=== PATIENT | male | born 1950 | race Caucasian/White ===

== ENCOUNTER → 2016-11-13 | Outpatient (CLI) | payer OTHER ==
[~2016-11-13] MED LIST: ADULT LOW DOSE81 MG PO; ADVAIR 250-501 EACH IH; ALTACE PO; AMARYL2 MG PO; AMBIEN 5 MG TABL5 M1 PO; CENTRUM TABLET1 TAB PO; CLONAZEPAM 0.50.5 M1 PO; COLACE100 MG PO; COMBIVENT INH; COMBIVENT RESPIM4 GM SPRAY; COMPLEX B-1001 EACH PO; COZAAR 25 MG TA25 MG PO; EFFEXOR XR150 MG PO; FENTANYL 1100 MCG/HR TP; FISH OIL 1,0001 EAC5 PO; FLAX OIL1000 MG PO; FLOMAX0.4 MG PO; FLONASE 0.05%50 MCG NS; GLUCOPHAGE500 MG PO; GLUCOSAMINE &1 EACH PO; IRON325 PO; MAGNESIUM500 MG PO; MELATONIN3 MG PO; MORPHINE SULFAT15 M3 PO; MS CONTIN100 MG PO; MUCINEX600 MG PO; NEURONTIN800 MG PO; NEXIUM40 MG PO; NIFEDIPINE ER60 M1 PO; NITROQUICK0.4 MG SL; PLAVIX 75 MG TA75 MG PO; ROXICODONE5 M2 PO; SPIRIVA INH; TRIAMTERENE-HC1 EAC3 PO; VITAMIN E1000 UNIT PO; VITAMINC500 PO; WELLBUTRIN SR150 MG PO; ZANAFLEX4 M1 PO; ZETIA10 MG PO
== END ==
LOC: CAT 09:47
DX: J44.9 Chronic obstructive pulmonary disease, unspecified (principal); J98.11 Atelectasis

== ENCOUNTER → 2017-07-18 | Outpatient (CLI) | payer OTHER | LOC: RAD 11:41 | DX: J44.9 Chronic obstructive pulmonary disease, unspecified (principal); J43.8 Other emphysema; I25.10 Atherosclerotic heart disease of native coronary artery without angina pectoris; K21.9 Gastro-esophageal reflux disease without esophagitis; I10 Essential (primary) hypertension; E11.9 Type 2 diabetes mellitus without complications ==

== ENCOUNTER 2019-05-06 09:26 | Day surgery (SDC) | payer OTHER ==
[~2019-05-06] VITALS: Ht 170.2 cm; Wt 106.1 kg
[~2019-05-06 09:26] MED LIST changes: +ADVAIR 250-501 EACH INH; +ALBUTEROL2.5 MG/31 INH; +AMOXICILLIN 50500 MG PO; +CARAFATE 1 GM TA1 G1 PO; +COZAAR 25 MG TA25 M2 PO; +FLONASE 0.05%50 MCG NASAL; +GAS-X125 MG PO; +LUNESTA3 MG PO; +METFORMIN HCL500 MG PO; +MORPHINE SULFAT30 M4 PO; +MULTIVITAMINS1 EAC7 PO; +NEURONTIN 400400 M1 PO; +NITROGLYCERIN0.4 MG SUBLING; +OXYCODONE HCL10 MG PO; +SPIRIVA18 MCG INH; +SPIRONOLACTONE25 M1 PO; +TRIAMCINOLONE A80 G2 TOP; +TROSPIUM CHLORI20 MG PO
[2019-05-06 10:06] LABS: HEMATOCRIT 41.2 % (42.0-52.0); HEMOGLOBIN 13.7 gm/dL (14.0-18.0)
[2019-05-06 10:22] LABS: CALCIUM 9.5 mg/dL (8.5-10.1); CREATININE 1.1 mg/dL (0.7-1.3); POTASSIUM 4.4 mmol/L (3.5-5.1)
[2019-05-06] MEDS ORDERED: SENNA PLUS TAB1 EACH PO (12:35)
[2019-05-06 12:57] VITALS: BP 145/89
--- NOTE | 2019-05-07 08:54 | O ---
[facility] [place] [address] OPERATIVE REPORT Name: ADRIANNA BARRETO Room #: DEP [facility]..#: [id number] Admission: 05/06/19 Attend Phys: Jessica Eduardo MD, Discharge: 05/06/19 Date of : 48 Report #: [id number] THIS REPORT FOR: //name// CC: Yeison Eduardo DATE OF SERVICE: 05/06/2019 PREOPERATIVE DIAGNOSIS: Symptomatic cholelithiasis. POSTOPERATIVE DIAGNOSES: 1. Symptomatic cholelithiasis. 2. Resolved choledocholithiasis. PROCEDURE PERFORMED: Laparoscopic cholecystectomy with intraoperative cholangiogram. SURGEON: Jessica Eduardo M.D. OCC THERAPIST: MERRITT Blanc. ANESTHESIA: General endotracheal anesthesia. ESTIMATED BLOOD LOSS: Minimal (less than 5 mL). COMPLICATIONS: None appreciated. SPECIMENS: Gallbladder to pathology. INDICATIONS: The patient is a 68-year-old male who presented several months ago with intermittent right upper quadrant abdominal pain and postprandial nausea with findings of gallstones. The patient attempted to tolerate this due to his significant cardiac history, but when he had progressive worsening of symptoms, he presented for evaluation. We have obtained cardiac clearance to proceed and as such, indication was for the above-mentioned procedure today. DESCRIPTION OF PROCEDURE: After explaining the risks, benefits and alternatives of the procedure with the patient in detail in the preoperative holding area and obtaining written consent, the patient was brought to the operating room and placed supine on the operating room table. After conducting a thorough timeout procedure verifying correct patient and procedure, the patient was given general endotracheal anesthesia. Once adequate anesthesia was obtained, his SCDs were hooked up to pneumatic compression device and he was given a preoperative dose of antibiotics in line with the SCIP protocol. The patient's abdomen was prepped and draped in standard surgical sterile fashion. 5 mL of 0.5% Marcaine [facility] [address] [place] [address] OPERATIVE REPORT Name: ADRIANNA BARRETO [id number] Admission: 05/06/19 Attend Phys: Jessica Eduardo MD, Discharge: 05/06/19 Date of : 48 Report #: [id number] with epinephrine were used to anesthetize the skin in the right upper quadrant midclavicular line in subcostal location. A #15 bladed scalpel was used to create a small skin shaun at this location. A 5 mm Visiport was placed over 0 degree 5 mm laparoscope and was introduced through this incision site. Once intra-abdominal placement was verified visually, the obturator for the trocar and laparoscope were both removed and the abdomen was insufflated to 15 mmHg using carbon dioxide gas. The laparoscope was changed to a 5-mm 30-degree laparoscope, which was reintroduced through this trocar. The entire abdomen was evaluated to ensure no injury upon entry. There were some adhesions in the mid abdomen from his prior open ventral hernia repairs; however, I was able to anesthetize the skin cephalad to these adhesions with 5 mL of 0.5% Marcaine with epinephrine and I created a 1 cm vertical incision at this location. An 11 mm Visiport was placed through this incision site under direct vision skewing cephalad to the adhesions and avoiding them altogether. The patient was now placed in steep reverse Trendelenburg with the right side elevated. The laparoscope was removed and placed in the 11 mm trocar. I now placed two additional 5 mm trocars, one in the subxiphoid location, one in the right lateral flank, both under direct vision after anesthetizing the skin at each location with 5 mL of 0.5% Marcaine with epinephrine and created small skin nicks using #15 bladed scalpel. Using the inferolateral most port along the patient's right flank, the fundus of the gallbladder was grasped and retracted cephalad. Careful tedious dissection was undertaken down around the cholecysto-cystic junction using combination of Harmonic scalpel and Maryland dissector. Once I had attained a critical view, namely the cystic duct emanating from the infundibulum of the gallbladder and coursing the common bile duct as well as cystic artery running the surface of the gallbladder and I created a window behind each, I transected the cystic artery nearest to the gallbladder side using Harmonic scalpel for hemostasis. A single clip was now placed along the cystic duct nearest to the gallbladder side and a small ductotomy was made just distal to this clip using EndoShears. This ductotomy was cannulated using the taut cholangiocatheter setup. We now performed an intraoperative cholangiogram showing prompt opacification of the cystic duct with both intra and extrahepatic bile ducts becoming opacified. There was antegrade flow of contrast in the duodenum with findings of a stone in the distal common bile duct that I was able to clear with repeated flushing of the common bile duct. At the completion run, we had antegrade flow of contrast into the duodenum with no evidence of filling defects or obstruction. The common bile duct at its distal most aspect was narrowed and tapered, but there was free flow and spillage of contrast into the duodenum. The cholangiocatheter setup was now removed, three clips were placed along the cystic duct nearest to the common bile duct side and it was transected above these clips using Harmonic scalpel to help seal the end of the duct closed. Further retraction at the infundibulum of the gallbladder in cephalad direction allowed me to elevate the gallbladder off the liver bed using Harmonic scalpel for hemostasis. The laparoscope was removed, changed to the right midclavicular 5 mm port and the EndoCatch bag was placed in the supraumbilical trocar. The specimen was placed [address] [address] OPERATIVE REPORT Name: ADRIANNA BARRETO Room #: DEP [facility]#: [id number] Admission: 05/06/19 Attend Phys: Jessica Eduardo MD, Discharge: 05/06/19 Date of : 48 Report #: [id number] within it. The pursestring suture was drawn and specimen was removed under direct vision. I then closed the supraumbilical fascial incision using 0 PDS suture on the Alan-Maury suture passer device and tied this down under direct vision. Final evaluation of the gallbladder fossa showed complete hemostasis with clips seated nicely on the cystic duct stump remnant. The abdomen was fully desufflated. All trocars removed under direct vision. A 4-0 Monocryl was used in a standard subcuticular fashion for all skin incisions and Dermabond glue was applied to all skin wounds. The gallbladder was opened on the back table showing significant findings of cholelithiasis and cholesterolosis, but no other pathologic findings were identified. At the end of the procedure, all instrument, needle and sponge counts were correct. The patient tolerated the procedure without incident, was awakened in the operating room, transitioned to the recovery room in stable condition with no apparent complications. <ELECTRONICALLY SIGNED> By: Jessica Eduardo MD, FACS 05/07/19 0854 [id number] Jessica Eduardo MD, FACS /nt
--- NOTE | 2019-05-07 15:07 | PATH ---
[facility] [address] [place] [address] PATHOLOGY RPT PROCEDURE Name: JOSE ALFREDO BARRETO Room #: DEP [facility] M.R.#: [id number] Admission: 05/06/19 Date of : 48 Discharge: 05/06/19 Report #: [id number] Path Case #: [id number] [facility] Accession Number: [id number] . 01 Material submitted: . gallbladder - GALLBLADDER . 01 Clinical history: . Calculus of gallbladder . 02 Diagnosis: Gallbladder, cholecystectomy: - Mild chronic cholecystitis. - Cholelithiasis. (IUV:jay; 05/07/2019) MBR 05/07/2019 1319 Local . 02 Electronically signed: . Angela Mcdonough MD, Pathologist NPI- [id number] . 01 Gross description: . The specimen is received in formalin labeled "Hockaday, Jose Alfredo, gallbladder" and consists of a previously opened green, smooth, and wrinkled gallbladder measuring 7.3 x 4.8 x 0.8 cm. The margin is inked black. Present within the container are multiple yellow multifaceted calculi measuring 4.9 x 3.5 x 1.4 cm in aggregate. The mucosa is green-brown and eroded with an average wall thickness of 0.1 cm. No masses are identified. Drill Doctor sections are submitted in A1. (SDY; 05/06/2019) SYU/SYU 05/06/[address] [place] [address] . 02 Pathologist provided ICD-10: K80.10 . 02 CPT . 430058 Specimen Comment: A courtesy copy of this report has been sent to Specimen Comment: [phone], . Specimen Comment: Report sent to / DR BHATTI Performed at: [address] [id number] MD Gildardo Khalil MD Phone: [phone] Performed at: [address] [id number] [address] [address] PATHOLOGY RPT PROCEDURE Name: JOSE ALFREDO BARRETO Room #: DEP [facility] M.R.#: [id number] Admission: 05/06/19 Date of : 48 Discharge: 05/06/19 Report #: [id number] Path Case #: [id number] MD Angela Vadlamani MD Phone: [phone]
== END 2019-05-06 14:15 | disposition home or self-care (01) ==
LOC: OR 09:26 → TBA 09:32 → OR 14:15
PROVIDERS: Surgery
DX: K80.10 Calculus of gallbladder with chronic cholecystitis without obstruction (principal); I10 Essential (primary) hypertension; E11.9 Type 2 diabetes mellitus without complications; E78.00 Pure hypercholesterolemia, unspecified; K21.9 Gastro-esophageal reflux disease without esophagitis; J43.9 Emphysema, unspecified; F32.9 Major depressive disorder, single episode, unspecified; F41.9 Anxiety disorder, unspecified; G47.30 Sleep apnea, unspecified; M19.90 Unspecified osteoarthritis, unspecified site; Z98.890 Other specified postprocedural states; Z79.899 Other long term (current) drug therapy; Z96.653 Presence of artificial knee joint, bilateral; Z87.891 Personal history of nicotine dependence; Z88.8 Allergy status to other drugs, medicaments and biological substances
CPT/HCPCS: 50010; 50101; 50249; 50411; 50555; 50558; 50962; 51975; 52265; 53307; 54022; 54118; 55245; 55317; 56462; 56525; 56526; 62110; 62900; 70005

== ENCOUNTER → 2019-09-15 | Outpatient (CLI) | payer OTHER ==
[~2019-09-15] MED LIST changes: +SENNA PLUS TAB1 EACH PO
== END ==
LOC: CAT 11:38
DX: Z12.2 Encounter for screening for malignant neoplasm of respiratory organs (principal); J98.4 Other disorders of lung; I25.10 Atherosclerotic heart disease of native coronary artery without angina pectoris; R19.5 Other fecal abnormalities; M25.78 Osteophyte, vertebrae; M43.04 Spondylolysis, thoracic region; Z87.891 Personal history of nicotine dependence

== ENCOUNTER → 2019-11-24 | Outpatient (CLI) | payer OTHER | LOC: RAD 13:16 | DX: J18.8 Other pneumonia, unspecified organism (principal); J44.9 Chronic obstructive pulmonary disease, unspecified; J98.11 Atelectasis; J98.4 Other disorders of lung ==

== ENCOUNTER → 2020-04-20 | Outpatient (CLI) | payer OTHER | LOC: RAD 15:15 | PROVIDERS: ATTEND Family Medicine | DX: R07.9 Chest pain, unspecified (principal); R07.81 Pleurodynia ==

== ENCOUNTER → 2020-08-11 | Outpatient (CLI) | payer OTHER | LOC: RAD 12:07 | PROVIDERS: ATTEND Internal Medicine | DX: J44.9 Chronic obstructive pulmonary disease, unspecified (principal) ==

== ENCOUNTER 2020-10-04 10:49 | Inpatient (IN) | payer OTHER ==
[~2020-10-04] VITALS: Ht 170.2 cm; Wt 113.4 kg
--- NOTE | ~2020-10-04 | HC ---
[facility] [address] CONSULTATION Name: ADRIANNA BARRETO Room #: 461-P ADM IN M.R.#: [id number] Admission: 10/04/20 Attend Phys: Kendrick Gunn MD Discharge: Date of : 48 Report #: [id number] THIS REPORT FOR: cc: Yeison Nazario James A. DO Smithson, David G. MD ~ DATE OF SERVICE: 10/06/2020 HISTORY OF PRESENT ILLNESS: The patient is a 70-year-old male admitted with recent multiple falls, confusion, was noted to have acute renal failure thought to be acute kidney insufficiency superimposed on chronic kidney disease, likely a grade 2. Creatinine was up to 4.9. He is noted to have rhabdomyolysis. Nephrology has been involved. He has been hydrated. Creatinine has come down to 1.4. He was noted to have a superimposed toxic metabolic encephalopathy. He is feeling better now and is hoping to return directly home. PAST MEDICAL HISTORY: Includes hypertension, hyperlipidemia, coronary artery disease, diabetes mellitus type 2, COPD, and GERD. MEDICATIONS: Please see the full medication listing. ALLERGIES: Multiple allergies are as noted. SOCIAL HISTORY: Lives in a house with his , 2 steps in. Premorbid cane ambulator. He is on O2, 2 liters during the day with 3 liters at night. He has a CPAP at night. The patient and his are both retired . REVIEW OF SYSTEMS: Did not offer any current complaints of chest pain, shortness of breath or abdominal discomfort. He apparently has had a couple of prior episodes of rhabdomyolysis, which the relates to dehydration/medication issues. PHYSICAL EXAMINATION: GENERAL: He is a pleasant 70-year-old white male in no obvious distress. VITAL SIGNS: Last recorded temperature 36.7, pulse 81, respirations 19, and blood pressure 146/84. NEUROLOGIC: He is alert, follows basic 1 step commands. HEENT: Facies appeared symmetric. EXTREMITIES: He has functional range of motion of both upper extremities. Strength is grade 4+/5. DTRs are trace to 1. Lower extremities, no focal calf swelling, functional range of motion, strength is grade 4+/5. Tone appeared to be intact. He is standby assistance sit to stand. Gait 50 feet min assist, handheld. He has got a slight wide base of support. Lower extremity dressing was mod assist. [facility] [address] [place] [address] CONSULTATION Name: ADRIANNA BARRETO Room #: 461-P [facility] IN [facility]#: [id number] Admission: 10/04/20 Attend Phys: Kendrick Gunn MD Discharge: Date of : 48 Report #: [id number] ASSESSMENT: A 70-year-old white male with the following problem list: 1. Toxic metabolic encephalopathy, which appears to be improving. 2. Acute renal failure, probable acute tubular necrosis, improved. 3. Rhabdomyolysis. 4. Hypertension. 5. Hyperlipidemia. 6. Chronic obstructive pulmonary disease. 7. Chronic pain. PLAN: He is feeling better and the patient and his are both hoping to return directly home rather than going for an acute inpatient rehabilitation stay. We will have PT and OT do training with the and if all goes well, would anticipate he should be able to return directly home with either some home healthcare or outpatient therapy. If the training does not go well, then we would be available as a backup plan for a short acute in-hospital inpatient rehabilitation stay. By: 1428 1523 Chris Mcnally MD /nt
[2020-10-04 10:51] VITALS: BP 109/82
--- NOTE | 2020-10-04 11:05 | NUR ---
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 PT'S REPORTS THAT PT HAD A TOOTH EXTRACTED RECENTLY. THAT FALLS BEGAN ON SUNDAY. THAT SHE NOTES WHAT MIGHT ALSO BE HALLUCINATIONS
[2020-10-04 11:43] LABS: ABSOLUTE NEUTROPHILS 7.1 thou/uL (1.4-8.2); BASOPHILS 0.5 % (0.0-2.0); EOSINOPHILS 1.1 % (0.0-3.0); HEMATOCRIT 35.7 % (42.0-52.0); HEMOGLOBIN 12.1 gm/dL (14.0-18.0); LYMPHOCYTES 11.9 % (24.0-44.0); MCH 32.9 pg (26.0-34.0); MCV 96.9 fL (80.0-100.0); MONOCYTES 7.1 % (1.0-8.0); PLATELET COUNT 249 thou/uL (150-400); POLYS 79.4 % (36.0-66.0); RBC 3.68 mil/uL (4.50-6.00); RDW 14.8 % (10.5-14.5)
[2020-10-04 11:55] LABS: CALCIUM 10.4 mg/dL (8.5-10.1); CREATININE 4.9 mg/dL (0.7-1.3); POTASSIUM 3.6 mmol/L (3.5-5.1)
[2020-10-04 12:01] LABS: ALBUMIN 3.8 g/dL (3.4-5.0); TOTAL BILIRUBIN 0.9 mg/dL (0.2-1.0); TOTAL PROTEIN 7.8 g/dL (6.4-8.2)
[2020-10-04 13:55] LABS: URINE BILIRUBIN NEGATIVE (Negative); URINE BLOOD TRACE (Negative); URINE CLARITY CLEAR; URINE COLOR YELLOW; URINE GLUCOSE-RANDOM* NEGATIVE (Negative); URINE KETONES NEGATIVE (Negative); URINE LEUKOCYTES-REFLEX NEGATIVE (Negative); URINE NITRITE-REFLEX NEGATIVE (Negative); URINE PROTEIN (DIPSTICK) NEGATIVE (Negative); URINE SPECIFIC GRAVITY 1.015 (1.005-1.035); URINE UROBILINOGEN 0.2 E.U./dl (0.2-1.0)
--- NOTE | 2020-10-04 15:00 | EKG ---
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
[2020-10-04 17:34] VITALS: BP 112/52
[2020-10-04 18:26] VITALS: BP 112/52
[2020-10-04 19:36] VITALS: BP 131/58
[2020-10-04 20:52] VITALS: BP 136/72
[2020-10-05 05:12] VITALS: BP 114/61
--- NOTE | 2020-10-05 05:37 | NUR ---
ASUUMED CARE OF PT FROM ER AT 1940HRS. PT IS AOX4 AND LETS NEEDS BE KNOWN. FALL PRECAUTION IN PLACE. PT WAS OTIENTED TO THE UNIT AND HIS ROOM. PT WAS ABLE TO SIGN CONSENTS AND ANSWER ALL ADMISSION RELATED QUESTIONS. ASSESSMENT CHARTED. SCDS IN PLACE. ORDERS RECEIVED AND STARTED. PT USED THE URINAL. PT REPORTS NOT HAVING A BM FOR ABOUT A WEEK. PT WAS ABLE TO GET COMFORTABLE AND SLEEP PART OF THE SHIFT. NO S/S OF ACUTE DISTRESS WILL CONTINUE TO MONITOR.
[2020-10-05 06:02] LABS: HEMATOCRIT 34.8 % (42.0-52.0); HEMOGLOBIN 11.8 gm/dL (14.0-18.0); MCH 32.9 pg (26.0-34.0); MCHC 33.9 g/dL (28.0-37.0); MCV 96.9 fL (80.0-100.0); RBC 3.59 mil/uL (4.50-6.00); RDW 14.5 % (10.5-14.5); WBC 4.9 thou/uL (4.0-11.0)
[2020-10-05 06:12] LABS: CALCIUM 9.7 mg/dL (8.5-10.1); POTASSIUM 3.5 mmol/L (3.5-5.1)
[2020-10-05 06:15] LABS: CREATININE 2.9 mg/dL (0.7-1.3)
[2020-10-05 08:10] VITALS: BP 122/67
--- NOTE | 2020-10-05 13:24 | NUR ---
Assumed pt care at 7am.Pt in bed sleeping with cpap on but arousable. Assessment completed.vss.Pt up in chair for all meals.Good appetite.Pt wanted to call family on long distance. rn assisted pt with call .PT and OT eval done.Rehab consult done.Pt resting in chair with o2 on. No c/o soa.Fall bundle in place. Will continue to monitor.
--- NOTE | 2020-10-05 15:11 | NUR ---
PT ADMITTED RELATED TO ACUTE RENAL FAILURE, GENERALIZED WEAKNESS, MILD RHABDO. CM REVIEWED CHART AND SPOKE WITH CARE TEAM. CM MET WITH PT AT BEDSIDE THIS DAY. PT APPEARED TO BE A&O X4. CM ROLE INTRODUCED. PT INDICATED HE RESIDES IN A HOUSE WITH HIS SPOUSE Alexandra LOPEZ [place] WITH 1 STEP TO ENTER THE FRONT OF THE HOUSE AND 2 STEPS THROUGH THE GARAGE. PT INDICATED HE HAS A CANE AND A FWW FOR HOME USE. PT HAS A CPAP FOR NOC USE AND HOME O2 THROUGH [employer] WITH 2-3 L CONTINUOUS. PT INDICATED NO HH OR SKILLED HX. PT INDICATED HE WOULD BE RECEPTIVE TO POST ACUTE CARE STAY OR HH IF NEEDED UPON DC. CM SPOKE WITH PT ABOUT 5N AND INDICATED THAT OPTIONS FOR HH PROVIDERS COULD BE PROVIDED IN HIS SERVICE AREA. CM CALLED AND LEFT FOR PT'S SPOUSE. CM FOLLOWING REGARDING DC PLANNING. NEPHROLOGY AND 5N CONSULTED.
[2020-10-05 15:45] VITALS: BP 137/76
[2020-10-05 18:28] VITALS: BP 167/103
[2020-10-05 18:38] VITALS: BP 169/98
[2020-10-05 20:32] VITALS: BP 155/86
--- NOTE | 2020-10-06 02:58 | NUR ---
Assumed pt care at 1900. Pt had just had EKG/Troponin done d/t epegastric pain both tests non remarkable. Pt still c/o feeling of indigestion/belching notified gave orders for Protonix/Tums pt medicated with no some relief reported. Pt had a BM and reported feeling a little better but still have discomfort; paged again and Simethicone ordered. Lemon lower elwha soda provided as well. Pt resting quietly at this time, O2 on @ 2L/NC will continue to monitor pt. SR on telemetry. Fall precauitons in place.
[2020-10-06 06:04] LABS: HEMATOCRIT 33.3 % (42.0-52.0); HEMOGLOBIN 11.9 gm/dL (14.0-18.0); MCH 34.5 pg (26.0-34.0); MCHC 35.7 g/dL (28.0-37.0); MCV 96.5 fL (80.0-100.0); RBC 3.45 mil/uL (4.50-6.00); RDW 14.7 % (10.5-14.5); WBC 4.9 thou/uL (4.0-11.0)
[2020-10-06 06:28] LABS: CALCIUM 9.2 mg/dL (8.5-10.1); POTASSIUM 3.4 mmol/L (3.5-5.1)
[2020-10-06 06:35] LABS: CREATININE 1.4 mg/dL (0.7-1.3)
--- NOTE | 2020-10-06 07:06 | EKG ---
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 : 1950 Requested By: Kendrick Gunn Order Number: [id number] MD: Dane Cardoso Measurements Intervals [place] Rate: 86 P: 73 [place]: 150 QRS: 46 QRSD: 104 T: 42 QT: 368 QTc: 440 Interpretive Statements Sinus rhythm Abnormal R-wave progression, early transition Compared to ECG 10/04/2020 10:54:07 T-wave abnormality no longer present Prolonged QT interval no longer present Electronically Signed On 10-06-2020 7:06:08 CDT by Dane Cardoso [email or web address] <ELECTRONICALLY SIGNED> By: Dane Cardoso MD, [facility] 10/06/20 0706 1848 1848 Dane Cardoso MD, [facility] /EPI
[2020-10-06 08:00] VITALS: BP 146/84
--- NOTE | 2020-10-06 13:53 | NUR ---
CM MET WITH PT AND HIS AT BEDSIDE THIS AM. CARE TEAM ARE RECOMMENDING SHORT TERM SKILLED POST ACUTE CARE STAY UPON DC. CM CONVEYED THIS TO PT AND SPOUSE. CM INDICATED THAT 5N WAS GOING TO ASSESS FOR POSSIBLE ADMISSION. PT AND SPOUSE ASKED ABOUT WHETHER PT COULD RETURN HOME WITH SERVICES. CM INDICATED THAT THEY WERE RECOMMENDING SHORT TERM POST ACUTE CARE STAY OF RIGHT NOW. HOSPITAL IS ABOUT [address] FROM [address] THEY LIVE SO THEY WERE INTERESTED IN OTHER POSSIBLE OPTIONS CLOSER TO THEM CM CALLED [facility] IN [facility] AND THEY DON'T HAVE A SWING BED, NEITHER DOES [facility]. THE CLOSEST SWIND BED IN AT [facility] IN [place]. THEY INDICATED THAT THEY MIGHT JUST PREFER THAT PT GO TO 5N THEN IF NEEDED. CM FOLLOWING REGARDING DC PLANNING.
--- NOTE | 2020-10-06 14:19 | NUR ---
Assumed pt care at 7am.Assessment completed.vss.Pt reported feeling better today and thinking about discharge.Dr Evangelista here, stated that pt creatine today was good and signed off pt case.Dr Gunn and Uli rounded on pt later this afternoon. Pt might dc to rehab today if authourized by insurance.Pt up to br x2 for bm. Small formed stool noted. at bs for visit.No c/o soa at present.Will continue to monitor.
--- NOTE | 2020-10-06 15:02 | NUR ---
5N ASSESSED AND PT AND SPOUSE INDICATED DESIRE TO RETURN HOME WITH HH SERVICES IF POSSIBLE. SPOUSE IS AVAIABLE TO BE PRESENT FOR THERAPY TREATS TOMORROW AROUND 10:00. THEY WOULD LIKE REFERRAL SENT TO [facility] FOR POSSIBLE SERVICES UPON ANNTICIPATED DC TOMORROW. CM FOLLOWING REGARDING DC PLANNING.
[2020-10-06 16:00] VITALS: BP 122/78
--- NOTE | 2020-10-06 16:23 | NUR ---
SPOKE WITH LORNE IN INTAKE AT [facility] THEY CAN ACCEPT AND WILL NOT BE ABLE TO START SERVICES TIL Sunday10/11/20 SPOKE WITH LUCIO LOYOLA) PT AND PHYSICIAN IN AGREEMENT PT OK TO START HH 10/11. NOTIFIED [facility] THAT IT IS OK TO START SERVICES ON WEDNESDAY 10/11.
[2020-10-06 19:35] VITALS: BP 127/73
--- NOTE | 2020-10-07 04:33 | NUR ---
VSS-AFEBRILE. ALERT AND ORIENTED ON INITIAL ASSESSMENT. ONE SHORT PERIOD OF CONFUSION WHEN AWAKENED DURING THE NIGHT, WAS EASILY REORIENTED. REFUSED CPAP AT HS, REQUESTED 2LNC. FALL PRECAUTIONS IN PLACE, CALLS APPROPRIATELY FOR ANY NEEDED ASSISTANCE.
[2020-10-07 07:52] VITALS: BP 158/100
[2020-10-07 10:06] VITALS: BP 158/100
[2020-10-07] MEDS ORDERED: NORVASC10 MG PO (11:49)
[2020-10-07 12:35] VITALS: BP 158/100
--- NOTE | 2020-10-07 12:41 | NUR ---
CARE TEAM INDICATED THAT PT IS MEDICALLY STABLE TO DC HOME WITH HH SERVICES THIS DAY. PT DID FAMILY TRAINING WITH SPOUSE THIS AM AND SHE INDICATED THAT IT WENT WELL AND PT SAFE TO DC. CM FAXED HH ORDERS TO [facility]. PT'S SPOUSE TO PROVIDE TRANSPORT HOME THIS DAY. PT HAD ALL RECOMMENDED DME. CASE CLOSED.
--- NOTE | 2020-10-07 12:58 | NUR ---
ASSUMED CARE OF PATIENT AT SHIFT CHANGE. ASSESSMENT CHARTED. MEDICATIONS ADMINISTERED PER EMAR. VSS. PATIENT IS A&OX4 AND MAKES NEEDS KNOWN. RE-EDUCATED ON FALL PRECAUTIONS BECAUSE PATIENT VOICED UPSET ABOUT BED ALARM. PATIENT DEEMED MEDICALLY STABLE FROM PROVIDER AND IS ABLE TO DISCHARGE THIS DATE. NO ISSUES THIS SHIFT. C/O PAIN 01/29 MEDICATED WITH SCHEDULED MORPHINE. VOICED NO OTHER NEEDS. SPOUSE AT BEDSIDE. DISCHARGE ORDERS IN PLACE AND BEING IMPLEMENTED. PATIENT TO LEAVE AT APPROX. [address] SPOUSE.
== END 2020-10-07 13:40 | disposition home health service (06) | DRG 682 ==
LOC: ER 10:49 → 4W 13:48 → EROBS 13:48 → 4W 19:38
PROVIDERS: Emergency Medicine; ADMIT Hospitalist; ATTEND Hospitalist
PROC: 5A09357 Assistance with Respiratory Ventilation, Less than 24 Consecutive Hours, Continuous Positive Airway Pressure (ICD-10-PCS; principal; 2020-10-05)
DX: N17.9 Acute kidney failure, unspecified (principal); G92 Toxic encephalopathy; M62.82 Rhabdomyolysis; I12.9 Hypertensive chronic kidney disease with stage 1 through stage 4 chronic kidney disease, or unspecified chronic kidney disease; J44.9 Chronic obstructive pulmonary disease, unspecified; M17.0 Bilateral primary osteoarthritis of knee; F41.9 Anxiety disorder, unspecified; F32.9 Major depressive disorder, single episode, unspecified; Z96.653 Presence of artificial knee joint, bilateral; J45.909 Unspecified asthma, uncomplicated; K21.9 Gastro-esophageal reflux disease without esophagitis; E78.5 Hyperlipidemia, unspecified; I25.10 Atherosclerotic heart disease of native coronary artery without angina pectoris; G89.29 Other chronic pain; N18.2 Chronic kidney disease, stage 2 (mild); E11.22 Type 2 diabetes mellitus with diabetic chronic kidney disease; E87.6 Hypokalemia; Z95.5 Presence of coronary angioplasty implant and graft; Z88.6 Allergy status to analgesic agent; Z88.1 Allergy status to other antibiotic agents; Z88.8 Allergy status to other drugs, medicaments and biological substances; Z87.891 Personal history of nicotine dependence; Z79.82 Long term (current) use of aspirin; Z79.899 Other long term (current) drug therapy; Z82.49 Family history of ischemic heart disease and other diseases of the circulatory system
CPT/HCPCS: 10045

== ENCOUNTER → 2020-10-04 | Outpatient (CLI) | payer OTHER | LOC: CAT 12:05 | PROVIDERS: ATTEND Family Medicine | DX: Z12.2 Encounter for screening for malignant neoplasm of respiratory organs (principal); R91.8 Other nonspecific abnormal finding of lung field; Z87.891 Personal history of nicotine dependence ==

== ENCOUNTER → 2021-01-19 | Outpatient (CLI) | payer OTHER ==
[~2021-01-19] MED LIST changes: +NORVASC10 MG PO
== END ==
LOC: CAT 11:51
PROVIDERS: ATTEND Internal Medicine
DX: J43.8 Other emphysema (principal); R91.8 Other nonspecific abnormal finding of lung field

== ENCOUNTER → 2021-07-20 | Outpatient (CLI) | payer OTHER | LOC: CAT 11:03 | PROVIDERS: ATTEND Family Medicine | DX: R41.3 Other amnesia (principal) ==